=== PATIENT | male | born 1990 | race Caucasian/White ===

== ENCOUNTER 2024-06-21 15:24 | Emergency (ER) | payer MEDICAID ==
[~2024-06-21] VITALS: Ht 177.8 cm; Wt 86.0 kg
[~2024-06-21 15:24] MED LIST: ACET-2058 PO; ATOR20TA PO; BEN2I IM; BENZ1TAB6 PO; BIS10RS PR; CLO01T GT; CLON0.1T14 PO; CLON0.5T3 PO; DIVA-93 PO; RISP0.5T17 PO; TRAZ-228 PO
[2024-06-21 17:01] VITALS: BP 107/72; PULSE 58; RESP 18; TEMP 98.7; O2SAT 98
== END 2024-06-21 17:04 | disposition home or self-care (01) ==
LOC: ER 15:24
DX: S13.4XXA Sprain of ligaments of cervical spine, initial encounter (principal); I10 Essential (primary) hypertension; Z71.82 Exercise counseling; Z79.899 Other long term (current) drug therapy; X58.XXXA Exposure to other specified factors, initial encounter; Y93.89 Activity, other specified; Y92.89 Other specified places as the place of occurrence of the external cause; Y99.8 Other external cause status
CPT/HCPCS: 72040

== ENCOUNTER → 2025-01-11 | Outpatient (CLI) | payer MEDICAID ==
[~2025-01-11] MED LIST changes: +EZ PAQUE SUSP 12OZ BTL ONE
== END | disposition home or self-care (01) ==
LOC: XYW 14:00
DX: R13.10 Dysphagia, unspecified (principal)

== ENCOUNTER → 2025-01-25 | Outpatient (CLI) | payer MEDICAID ==
[~2025-01-25] MED LIST changes: +BARIUM SULFATE 98% 340 GM PWDR ONE; -EZ PAQUE SUSP 12OZ BTL ONE
--- NOTE | 2025-01-25 20:54 | DVH ---
EXAM: XY SWALLOWING FUNCTION TEST DATE OF SERVICE: 01/25/2025 03:43 PM ORDERING PHYSICIAN: LOR MALONEY REASON FOR EXAM: DYSPHAGIA TECHNIQUE: Modified barium swallow with video fluoroscopy performed in association with speech patho logy service. Technical Quality: diagnostic COMPARISON: None FINDINGS: Fluoroscopic guidance provided for modified barium swallow in conjunction with speech pathology servi ce. IMPRESSION: Fluoroscopic guidance. Complete and detailed report and findings will be provided separately by the speech pathology service . End of Report
== END | disposition home or self-care (01) ==
LOC: XYW 14:08
DX: R13.10 Dysphagia, unspecified (principal); E78.2 Mixed hyperlipidemia; E55.9 Vitamin D deficiency, unspecified; F91.3 Oppositional defiant disorder; F71 Moderate intellectual disabilities; F90.9 Attention-deficit hyperactivity disorder, unspecified type
CPT/HCPCS: 74230; 92610

== ENCOUNTER 2025-05-11 14:42 | Emergency (ER) | payer MEDICAID ==
[~2025-05-11] VITALS: Ht 172.7 cm; Wt 83.2 kg
[~2025-05-11 14:42] MED LIST changes: -BARIUM SULFATE 98% 340 GM PWDR ONE
[2025-05-11 14:48] VITALS: BP 134/85; PULSE 70; RESP 16; TEMP 98.4; O2SAT 99
--- NOTE | 2025-05-11 15:18 | ED.PDOC ---
History of Present Illness(SKN HPI Comments A 35 YEAR OLD MALE PRESENTS TO THE ED WITH COMPLAINT OF PIMPLE/BOIL OF PERINEUM. PATIENT'S SOFTWARE TOOLS DEVELOPER STATES THE PATIENT HAS HAD A SMALL PIMPLE/BOIL ON HIS RIGHT PERINEUM REGION FOR THE PAST 1 WEEK. PATIENT DENIES FEVER, CHILLS, SHORTNESS OF BREATH, CHEST PAIN, ABDOMINAL PAIN, NAUSEA, VOMITING, HEADACHE, OR OTHER COMPLAINTS. NO OTHER SYMPTOMS OR MODIFYING FACTORS AT THIS TIME. PATIENT IS ALERT, ORIENTED X 4, AND HAS STEADY GAIT. Chief Complaint: SKIN BUMP Time Seen by MD: 14:52 Primary Care Provider: LEI History of Present Illness: Nurses Notes, Medications Allergies: Coded Allergies: Sulfate (Unverified Allergy, Unknown, 02/01/19) Home Meds Active Scripts Naproxen (Naproxen) 500 Mg Tab, 500 MG PO BID, #30 TAB Prov:NURY BABB 05/11/25 Cephalexin Monohydrate (Cephalexin) 500 Mg Cap, 1 CAP PO QID, #32 CAP Prov:NURY BABB 05/11/25 Reported Medications Bisacodyl (DULCOLAX SUPPOSITORY) 10 Mg Rc, 10 MG OH for for no bm for 3 days 02/01/19 Atorvastatin Calcium (Lipitor) 20 Mg Tab, 1 TAB PO DAILY, #90 TAB 1 Refill 02/01/19 Clonidine Hydrochloride (Catapres) 0.1 Mg Tab, 1 TAB PO TID, #180 TAB 1 Refill 02/01/19 Clonidine Hcl (CATAPRES TABLET) 0.1 Mg Tb, 0.1 MG GT 02/01/19 Divalproex Sodium (Depakote Er) 500 Mg Tab, 1 TAB PO BID, #60 TAB 2 Refills 02/01/19 Benztropine Mesylate (Benztropine Mesylate) 1 Mg Tab, 1 TAB PO DAILY, #60 TAB 02/01/19 Benztropine Mesylate (COGENTIN INJECTION) 2 Mg/2 Ml Ij, 1 MG IM 02/01/19 Risperidone (Risperdal) 0.5 Mg Tab, 4 MG PO QAM, TAB 02/01/19 Trazodone Hcl (Trazodone Hcl) 100 Mg Tab, 50 MG PO ACHS, TAB 02/01/19 Clonazepam (KlonoPIN TABLET) 0.5 Mg Tb, 1 TAB PO TID, #90 TAB 02/01/19 Acetaminophen (Acetaminophen) 160 Mg/5 Ml Raya, 325 MG PO Q6HP PRN for TEMP GREATER THAN 100.4 02/01/19 Information Source: Patient Mode of Arrival: Ambulatory Severity: Mild Timing: Days Duration: Since onset, Days Prehospital treatment: None Location: Other (PERINEUM REGION) Mechanism: Spontaneous Onset Occurence: Indoors Object: None Condition of Object: None Retained Foreign Body: No Wound Type: Other (PIMPLE/BOIL) Immunization Status of Animal: NA Tetanus: UTD History of: None Associated Signs and Symptoms: Redness, Pain, None Past Medical History PAST MEDICAL HISTORY: Depression, HTN Past Medical History (Other): MENTAL DELAY Surgical History: Denies all surgeries Family History Family History: Reviewed,noncontributory to illness Social History Smoker: Non-Smoker Alcohol: Denies ETOH Use Drugs: Denies Drug Use Lives In: Home, Other Constitutional: denies: chills, diaphoresis, fatigue, fever, malaise, sweats, weakness, others EENTM: denies: blurred vision, double vision, ear bleeding, ear discharge, ear drainage, ear pain, ear ringing, eye pain, eye redness, hearing loss, mouth miguel n, mouth swelling, nasal discharge, nose bleeding, nose congestion, nose pain, photophobia, tearing, throat pain, throat swelling, voice changes, others Respiratory: denies: cough, hemoptysis, orthopnea, SOB at rest, shortness of breath, SOB with excertion, stridor, wheezing, others Cardiovascular: denies: chest pain, dizzy spells, diaphoresis, Dyspnea on exertion, edema, irregular heart beat, left arm pain, lightheadedness, palpitations, PND, syncope, others Gastrointestinal: denies: abdomen distended, abdominal pain, blood streaked bowels, constipated, diarrhea, dysphagia, difficulty swallowing, hematemesis, melena, nausea, poor appetite, poor fluid intake, rectal bleeding, rectal pain, vomiting, others Genitourinary: denies: burning, dysuria, flank pain, frequency, hematuria, incontinence, penile discharge, penile sore, pain, testicle pain, testicle swelling, urgency, others Neurological: denies: dizziness, fainting, headache, left sided numbness, left sided weakness, numbness, paresthesia, pre-existing deficit, right sided numbness, right sided weakness, seizure, speech problems, tingling, tremors, weakness, others Musculoskeletal: denies: back pain, gout, joint pain, joint swelling, muscle pain, muscle stiffness, neck pain, others Integumetry: reports: lumps, others (SKIN PIMPLE/BOIL OF PERINEUM); denies: bruises, change in color, change in hair/nails, dryness, laceration, lesions, rash, wounds Allergic/Immunocompromised: denies: Difficulty Healing, Frequent Infections, Hives, Itching, others Endocrine: denies: excessive hunger, excessive sweating, excessive thirst, excessive urination, flushing, intolerance to cold, intolerance to heat, unexplained weight gain, unexplained weight loss, others Psychiatric: denies: anxiety, bipolar disorder, depression, hopeless, panic disorder, schizophrenia, sleepless, suicidal, others All Other Systems: Reviewed and Negative Physical Exam General Appearance: No Apparent Distress, Normal HEENT: Normal ENT Inspection, PERRL/EOMI, Pharynx Normal, TMs Normal Neck: Full Range of Motion, Non-Tender, Normal, Normal Inspection Respiratory: Chest Non-Tender, Lungs Clear, No Accessory Muscle Use, No Respiratory Distress, Normal Breath Sounds Cardiovascular: No Edema, No JVD, No Murmur, No Gallop, Normal Peripheral Pulses, Regular Rate/Rhythm Breast Exam: Deferred Gastrointestinal: No Organomegaly, Non Tender, No Pulsatile Mass, Normal Bowel Sounds, Soft Genitalia: Deferred Pelvic: Deferred Rectal: Deferred Extremities: No calf tenderness, Normal capillary refill, Normal inspection, Normal range of motion, Non-tender, No pedal edema Musculoskeletal : Apperance: Normal Neurologic: Alert, retaining room cutter II-XII nml as Tested, No Motor Deficits, Normal Affect, Normal Mood, No Sensory Deficits Cerebellar Function: Normal Reflexes: Normal Skin: Dry, Normal Color, Warm, Other ([id number] BUMP WITH LOCALIZED REDNESS AND TENDERNESS ON MIDDLE PERINEUM, NO SWELLING AND PUS DRAINAGE. ) Peripheral Pulses: 2+ carotid (R), 2+ carotid (L), 2+ dorsalis pedis (R), 2+ dorsalis pedis (L) Lymphatic: No Adenopathy Was a procedure done? Was a procedure done?: No Differential Diagnosis (INTG) Differential Diagnosis: N/A Differential Diagnosis: Abscess, Impetigo, Intertrigo, Other (SKIN PIMPLE, FURUNCLE, BOIL) Differential Diagnosis: N/A Abscess: N/A Differential Diagnosis: N/A X-Ray, Labs, Meds, VS Vital Signs Date Time Temp Pulse Resp B/P (MAP) Pulse Ox O2 Delivery O2 Flow Rate FiO2 05/11/25 14:48 98.4 70 16 134/85 99 98.4 X-Ray, Labs, Meds, VS Comment EXTERNAL MEDICAL RECORDS REVIEWED: [NONE] INDEPENDENT HISTORIANS: PATIENT'S SOFTWARE TOOLS DEVELOPER SOCIAL DETERMINANTS OF HEALTH: [NONE] LABS ORDERED: NONE REVIEWED AND INTERPRETED RESULTS: NONE IMAGING ORDERED: NONE TREATMENTS ORDERED: NONE PROCEDURES PERFORMED: NONE CRITICAL CARE TIME: NONE I HAVE DISCUSSED THE PATIENT WITH THE ATTENDING PHYSICIAN, DR. FOOTE HE AGREES WITH THE PATIENT'S PLAN OF CARE AND DISPOSITION. BASED ON HISTORY OF PRESENT ILLNESS, AND PHYSICAL EXAM, PATIENT WILL BE DISCHARGED HOME. DISCUSSED PLAN FOR DISCHARGE HOME WITH RX [[facility]]. MEDICATION WARNINGS GIVEN. SHARED DECISION MAKING: PATIENT INSTRUCTED TO FOLLOW UP WITH PRIMARY CARE PROVIDER IN 1-2 DAYS FOR RE-EVALUATION OF SYMPTOMS. PATIENT VERBALIZES UNDERSTANDING TO RETURN TO ED FOR NEW OR WORSENING SYMPTOMS OR IF FOLLOW UP WITH PCP CANNOT BE OBTAINED. PATIENT FEELS COMFORTABLE GOING HOME AT THIS TIME. ALL QUESTIONS ADDRESSED AT TIME OF DISCHARGE. Time of 1ST Reevaluation: 15:22 Reevaluation 1ST: Improved Patient Education/Counseling: Diagnosis, Treatment, Need For Follow Up Family Education/Counseling: Diagnosis, Treatment, Need For Follow Up Medical Screening: No EMC Exist At This Time SEPSIS Sepsis Screen Date sepsis recognized/suspect: May 11, 2025 Time Sepsis recognized/suspect: 1455 Recent Procedure: No On Antibiotic Therapy: No Respiratory Rate >20: No Heart Rate >90: No Temp<36 C (96.8 F) or >38.3 C: No SBP <90 or MAP <65 mmHG: No New Acute Mental Status Change: No Is the patient on CPAP, BIPAP,: No Vital Signs Date Time Temp Pulse Resp B/P (MAP) Pulse Ox O2 Delivery O2 Flow Rate FiO2 05/11/25 14:48 98.4 70 16 134/85 99 98.4 Departure 1 Departure Time of Disposition: 15:23 Impression: Primary Impression: Skin pimple Additional Impression: Suspected soft tissue infection Disposition: HOME / SELF CARE / HOMELESS Condition: Stable Additional Instructions: FOLLOW-UP WITH PCP IN 1 TO 2 DAYS. TAKE MEDICATIONS PRESCRIBED. RETURN TO ED FOR ANY NEW OR WORSENING SYMPTOMS. e-Prescriptions Naproxen (Naproxen) 500 Mg Tab 500 MG PO BID, #30 TAB Prov: NURY BABB 05/11/25 Cephalexin Monohydrate (Cephalexin) 500 Mg Cap 1 CAP PO QID, #32 CAP Prov: NURY BABB 05/11/25 Discharged With: Self, Line Puller Critical Care Note Critical Care Time?: No Stability Stability form required: No I personally scribed for NURY BABB ([id number]) on 05/11/25 at 15:18. Electronically submitted by Carlos Castillo ([email or web address]). NURY BABB May 11, 2025 15:18
[2025-05-11] MEDS ORDERED: CEPH500C PO (15:19)
[2025-05-11] MEDS ORDERED: NAPR-746 PO (15:19)
== END 2025-05-11 15:23 | disposition home or self-care (01) ==
LOC: ER 14:42
DX: R23.8 Other skin changes (principal); L08.9 Local infection of the skin and subcutaneous tissue, unspecified; I10 Essential (primary) hypertension; F32.A Depression, unspecified; Z79.899 Other long term (current) drug therapy